=== PATIENT | female | born 1955 | race Caucasian/White ===

== ENCOUNTER 2020-06-09 10:57 | Emergency (ER) | payer BC, OTHER ==
[2020-06-09] MEDS ORDERED: Ondansetron ODT 4 MG TAB ONE (11:55)
[2020-06-11 11:59] LABS: SARS-CoV-2 MS2 Positive; SARS-CoV-2 N Gene Positive; SARS-CoV-2 S Gene Positive; SARS-CoV-2 by NAA DETECTED (NotDetected); SARS-CoV-2 orf1ab Positive
== END 2020-06-09 12:00 | disposition home or self-care (01) ==
LOC: MADERS 10:57
DX: U07.1 COVID-19 (principal)
CPT/HCPCS: 87635; 99283; Q0162; U0003

== ENCOUNTER 2020-06-23 15:56 | Emergency (ER) | payer BC, OTHER ==
[2020-06-23] MEDS ORDERED: Azithromycin 250 MG TAB ONE (18:11)
--- NOTE | 2020-06-23 18:31 | RAD ---
FRONTAL RADIOGRAPH CHEST: Date: 06-23-2020 Comparison: 02-18-14 History: Dyspnea. FINDINGS: There is mild pulmonary vascular congestion. There is mild increased density in the right cardiophren ic angle, unchanged when compared to prior imaging. No pneumothorax or pleural fluid. No focal consol idation or alveolar edema. IMPRESSION: No focal consolidation or alveolar edema. POS: OFF
== END 2020-06-23 18:15 | disposition home or self-care (01) ==
LOC: MADERS 15:56
DX: U07.1 COVID-19 (principal); J40 Bronchitis, not specified as acute or chronic
CPT/HCPCS: 71045